=== PATIENT | male | born 1980 | race Caucasian/White ===

== ENCOUNTER 2021-06-07 17:42 | Emergency (ER) | payer OTHER ==
[~2021-06-07] VITALS: Ht 175.3 cm; Wt 75.0 kg
[2021-06-07] MEDS: SODIUM CHLORIDE 0.9% 1,000 ML IV ONE (20:15)
[2021-06-07 20:35] LABS: BASOPHILS % (AUTO) 1.1 % (0.0-2.0); EOSINOPHILS % (AUTO) 2.8 % (1.0-6.0); HEMATOCRIT 46.3 % (41-53); HEMOGLOBIN 15.5 g/dL (13.5-17.5); LYMPHOCYTES % (AUTO) 33.4 % (22.0-44.0); MEAN CORPUSCULAR HEMOGLOBIN 29.9 pg (26.0-34.0); MEAN CORPUSCULAR HGB CONC 33.5 G/dL (31.0-37.0); MEAN CORPUSCULAR VOLUME 89 fL (80-100); MONOCYTES # (AUTO) 0.7 K/uL (0.1-1.0); MONOCYTES % (AUTO) 11.6 % (2.0-9.0); NEUTROPHILS % (AUTO) 51.1 % (40.0-70.0); PLATELET COUNT (AUTO) 213 K/uL (150-450); RED BLOOD CELL COUNT(AUTO) 5.18 MIL/uL (4.50-5.90); RED CELL DISTRIBUTION WIDTH 12.8 % (11.5-14.5)
[2021-06-07 20:43] LABS: ANION GAP 10 mmol/L (8-16); CARBON DIOXIDE 29 mmol/L (22-29); CHLORIDE 100 mmol/L (98-107); CREATININE 1.04 mg/dL (0.60-1.30); GLOMERULAR FILTR. RATE CALC > 60 mL/min (>60); GLUCOSE,RANDOM 82 mg/dL (70-110); POTASSIUM 4.5 mmol/L (3.5-5.1); SODIUM SERUM 139 mmol/L (136-145); UREA NITROGEN, BLOOD 17 mg/dL (7-18)
[2021-06-07 21:09] LABS: ALANINE AMINOTRANSFERASE 35 U/L (12-78); ALBUMIN 4.2 g/dL (3.4-5.0); ALKALINE PHOSPHATASE 55 U/L (46-116); ASPARTATE AMINOTRANSFERASE 14 U/L (15-37); BILIRUBIN,TOTAL 0.3 mg/dL (0.1-1.0); CREATINE KINASE, TOTAL ONLY 158 U/L (39-308); TOTAL PROTEIN, SERUM 8.2 g/dL (6.4-8.2)
[2021-06-07 22:45] VITALS: BP 124/70
== END 2021-06-07 23:31 | disposition home or self-care (01) ==
LOC: EMS 17:46
DX: H53.8 Other visual disturbances (principal); Z88.0 Allergy status to penicillin
CPT/HCPCS: 70450; 80053; 82550; 84484; 85025; 93005; 99285